=== PATIENT | female | born 1935 | race Caucasian/White ===

== ENCOUNTER 2021-02-07 14:19 | Inpatient (IN) | payer MEDICARE, SELFPAY ==
[2021-02-07] MEDS ORDERED: hydrALAZINE 20 MG/ML VIAL SLOW IVP PRN (16:23)
[2021-02-07] MEDS ORDERED: Dextrose 5% in Water 1,000 ML IV PRN (16:23)
[2021-02-07] MEDS ORDERED: Ondansetron ODT 4 MG TAB PO PRN (16:23)
[2021-02-07] MEDS ORDERED: Dextrose 50% Abboject 50 ML SYRINGE SLOW IVP PRN (16:23)
[2021-02-07 18:37] LABS: INR-International Normal Ratio 1.1; PTT 42.5 sec (22.9-36.1); Prothrombin Time 14.5 sec (12.0-14.7)
[2021-02-07] MEDS: Acetaminophen 325 MG TAB PO SCH ×2 (18:44→23:33)
[2021-02-07] MEDS ORDERED: Enoxaparin Sodium 80 MG/0.8 ML SYRINGE SC SCH (21:00)
[2021-02-07] MEDS: Famotidine/PF 20 mg/2ml Vial SLOW IVP SCH (21:17)
[2021-02-07] MEDS ORDERED: Enoxaparin Sodium 100 MG/ML SYRINGE SC SCH (21:30)
[2021-02-07] MEDS: traMADol HCl 50 MG TAB PO PRN (21:49)
[2021-02-07] MEDS ORDERED: Amlodipine 5 MG TAB PO SCH (23:00)
[2021-02-07] MEDS: Ibuprofen 200 MG TAB PO SCH (23:33)
[2021-02-08 01:02] VITALS: BMI 30.4
[2021-02-08] MEDS: traMADol HCl 50 MG TAB PO PRN ×2 (01:40→08:49)
[2021-02-08] MEDS: Morphine 4 MG/ML VIAL SLOW IVP PRN ×2 (02:21→05:24)
[2021-02-08] MEDS: Ibuprofen 200 MG TAB PO SCH ×3 (03:28→21:26)
[2021-02-08 05:34] LABS: SARS-CoV-2 PCR by NAA Not Detected (NotDetected)
[2021-02-08 06:03] LABS: INR-International Normal Ratio 1.1; Prothrombin Time 14.3 sec (12.0-14.7)
[2021-02-08 06:04] LABS: PTT 49.4 sec (22.9-36.1)
[2021-02-08 06:17] LABS: Phosphorus 2.7 mg/dL (2.3-4.7)
[2021-02-08] MEDS: Acetaminophen 325 MG TAB PO SCH ×4 (06:19→23:40)
[2021-02-08 06:22] LABS: Anion Gap 13 mmol/L (10-20); BUN (Urea Nitrogen) 17 mg/dL (9.8-20.1); Calc. Creatinine Clearance 69 mL/min (70-130); Carbon Dioxide 21 mmol/L (23-31); Chloride 107 mmol/L (98-107); Glucose 103 mg/dL (83-110); Potassium 3.8 mmol/L (3.5-5.1); Sodium 137 mmol/L (136-145)
[2021-02-08 06:33] LABS: #Eosinphils 0.4 thou/uL (0.0-0.7); #Lymphocytes 1.7 thou/uL (1.20-3.40); #Monocytes 1.1 thou/uL (0.11-0.59); #Neutrophils 13.2 thou/uL (1.40-6.50); %Basophils 0.1 % (0.0-1.0); %Eosinophils 2.2 % (0.0-10.0); %Lymphocytes 10.3 % (21.0-51.0); %Monocytes 6.9 % (0.0-10.0); %Neutrophils 80.5 % (42.0-75.0); Anisocytosis SLIGHT = 6-15 cells (100X) (0-5/hpf); Hemoglobin 7.2 g/dL (12.0-16.0); MDiff Complete? YES; Mean Corpuscular HGB CONC 29.1 g/dL (32.0-36.0); Mean Corpuscular Hemoglobin 18.5 pg (27.0-31.0); Mean Corpuscular Volume 63.3 fL (78.0-98.0); Mean Platelet Volume 9.4 fL (7.4-10.4); Microcytosis SLIGHT = 6-15 cells (100X) (0-5/hpf); Platelet Count 339 thou/uL (130-400); RBC Distribution Width 17.3 % (11.5-14.5); Red Blood Cell (RBC) Count 3.91 mill/uL (4.20-5.40); Reflex for Review?? YES; White Blood Cell (WBC) Count 16.5 thou/uL (4.8-10.8)
[2021-02-08] MEDS: Famotidine/PF 20 mg/2ml Vial SLOW IVP SCH ×2 (08:48→21:24)
[2021-02-08] MEDS: Amlodipine 5 MG TAB PO SCH (08:48)
[2021-02-08] MEDS: Gabapentin 300 MG CAP PO SCH ×2 (08:48→21:26)
[2021-02-08] MEDS: Enoxaparin Sodium 100 MG/ML SYRINGE SC SCH ×2 (08:49→21:24)
[2021-02-08] MEDS ORDERED: Non-Formulary Item 1 EACH (Gabapentin [Gabapentin] 600 MG Tablet) PO SCH (09:00)
[2021-02-08 15:48] LABS: Bacteria/HPF None Seen HPF (None Seen); Bilirubin Negative (Negative); Blood, Urine Negative (Negative); Clarity Clear (Clear); Glucose, Urine (Dipstick) Normal (Negative); Ketone, Urine Negative (Negative); Leukocyte Negative Leu/uL (Negative); Nitrite Negative (Negative); Protein, Urine (Dipstick) 20 mg/dL (Neg-Trace); RBC/HPF 0-3 HPF (0-3); Specific Gravity, Urine 1.047 (1.002-1.036); Squamous Epithelial 0-3 HPF (0-3); Urobilinogen Normal mg/dL (Less than 2); WBC/HPF 0-3 HPF (0-3); pH, Urine 5.5 (5.0-9.0)
[2021-02-08] MEDS: Atorvastatin Calcium 40 MG TAB PO SCH (21:24)
[2021-02-09] MEDS: Ibuprofen 200 MG TAB PO SCH ×3 (04:29→20:01)
[2021-02-09] MEDS: Acetaminophen 325 MG TAB PO SCH ×4 (05:35→23:38)
[2021-02-09 06:17] LABS: #Eosinphils 0.4 thou/uL (0.0-0.7); #Lymphocytes 2.1 thou/uL (1.20-3.40); #Monocytes 1.1 thou/uL (0.11-0.59); #Neutrophils 14.1 thou/uL (1.40-6.50); %Basophils 0.2 % (0.0-1.0); %Eosinophils 2.4 % (0.0-10.0); %Lymphocytes 11.9 % (21.0-51.0); %Monocytes 6.3 % (0.0-10.0); %Neutrophils 79.2 % (42.0-75.0); Hemoglobin 8.4 g/dL (12.0-16.0); Mean Corpuscular HGB CONC 30.5 g/dL (32.0-36.0); Mean Corpuscular Hemoglobin 20.1 pg (27.0-31.0); Mean Platelet Volume 9.8 fL (7.4-10.4); Platelet Count 342 thou/uL (130-400); RBC Distribution Width 20.3 % (11.5-14.5); White Blood Cell (WBC) Count 17.9 thou/uL (4.8-10.8)
[2021-02-09] MEDS: Enoxaparin Sodium 100 MG/ML SYRINGE SC SCH ×2 (08:15→20:00)
[2021-02-09] MEDS: traMADol HCl 50 MG TAB PO PRN ×3 (08:22→19:59)
[2021-02-09] MEDS: Gabapentin 300 MG CAP PO SCH ×2 (08:23→20:00)
[2021-02-09] MEDS: Amlodipine 5 MG TAB PO SCH (08:24)
[2021-02-09] MEDS: Famotidine/PF 20 mg/2ml Vial SLOW IVP SCH (08:25)
[2021-02-09] MEDS: Ferrous Sulfate 325 MG TAB PO SCH ×2 (08:25→17:53)
[2021-02-09] MEDS: Ascorbic Acid 500 mg Chewable Tablet PO SCH ×2 (08:25→20:00)
[2021-02-09] MEDS: Polyethylene Glycol 3350 17 GM Packet PO SCH (08:26)
[2021-02-09 08:36] LABS: Albumin 3.2 g/dL (3.4-4.8); Anion Gap 11 mmol/L (10-20); BUN (Urea Nitrogen) 14 mg/dL (9.8-20.1); Bilirubin, Total 0.9 mg/dL (0.2-1.2); Calc. Creatinine Clearance 79 mL/min (70-130); Calcium 8.9 mg/dL (7.8-10.44); Carbon Dioxide 23 mmol/L (23-31); Chloride 107 mmol/L (98-107); Glucose 103 mg/dL (83-110); Potassium 3.7 mmol/L (3.5-5.1); Protein, Total 6.3 g/dL (5.8-8.1); Sodium 137 mmol/L (136-145)
[2021-02-09 08:37] LABS: ALT (SGPT) 9 U/L (8-55); AST (SGOT) 13 U/L (5-34); Alkaline Phosphatase 66 U/L (40-110); Globulin 3.1 g/dL (2.4-3.5)
[2021-02-09] MEDS: Famotidine 20 MG TAB PO SCH (19:59)
[2021-02-09] MEDS: Atorvastatin Calcium 40 MG TAB PO SCH (20:00)
[2021-02-10] MEDS: Ibuprofen 200 MG TAB PO SCH ×2 (03:06→11:57)
[2021-02-10] MEDS: Acetaminophen 325 MG TAB PO SCH ×2 (06:30→11:57)
[2021-02-10] MEDS: traMADol HCl 50 MG TAB PO PRN ×2 (07:12→13:48)
[2021-02-10] MEDS: Gabapentin 300 MG CAP PO SCH (08:20)
[2021-02-10] MEDS: Polyethylene Glycol 3350 17 GM Packet PO SCH (08:21)
[2021-02-10] MEDS: Amlodipine 5 MG TAB PO SCH (08:21)
[2021-02-10] MEDS: Famotidine 20 MG TAB PO SCH (08:21)
[2021-02-10] MEDS: Ascorbic Acid 500 mg Chewable Tablet PO SCH (08:21)
[2021-02-10] MEDS: Ferrous Sulfate 325 MG TAB PO SCH (08:21)
[2021-02-10] MEDS: Enoxaparin Sodium 100 MG/ML SYRINGE SC SCH (08:21)
[2021-02-10 12:27] VITALS: BP 136/77; TEMP 99.1
== END 2021-02-10 15:50 | disposition home or self-care (01) | DRG 183 ==
LOC: ERS 14:19 → SURG A 16:09
PROVIDERS: ADMIT Surgery; ATTEND Surgery
DX: S22.42XA Multiple fractures of ribs, left side, initial encounter for closed fracture (principal); I26.99 Other pulmonary embolism without acute cor pulmonale; Z20.822 Contact with and (suspected) exposure to COVID-19; W19.XXXA Unspecified fall, initial encounter; E78.00 Pure hypercholesterolemia, unspecified; Z96.611 Presence of right artificial shoulder joint; I10 Essential (primary) hypertension; R73.03 Prediabetes; Z95.1 Presence of aortocoronary bypass graft; Z90.49 Acquired absence of other specified parts of digestive tract; Z88.0 Allergy status to penicillin; Z91.040 Latex allergy status; S32.019D Unspecified fracture of first lumbar vertebra, subsequent encounter for fracture with routine healing; S32.039D Unspecified fracture of third lumbar vertebra, subsequent encounter for fracture with routine healing
CPT/HCPCS: 36415; 36430; 80048; 80053; 81003; 83735; 84100; 85025; 85610; 85730; 86850; 86900; 86901; 87086; 87635; 99285; J1650; J2270; P9016; Q0162; S0028; U0003; U0005

== ENCOUNTER 2021-02-25 11:29 | Outpatient (CLI) | payer MEDICARE | END 2021-02-25 11:30 | disposition home or self-care (01) | LOC: BICRAD 11:29 | PROVIDERS: ATTEND Surgery | DX: S22.39XA Fracture of one rib, unspecified side, initial encounter for closed fracture (principal) | CPT/HCPCS: 71046 ==

== ENCOUNTER 2021-03-18 11:31 | Day surgery (SDC) | payer MEDICARE ==
[2021-03-18] MEDS ORDERED: PROPOFOL 200 MG/20 ML VIAL ONE (13:23)
[2021-03-18 15:16] LABS: Hemoglobin 10.2 g/dL (12.0-16.0); Mean Corpuscular HGB CONC 30.6 g/dL (32.0-36.0); Mean Corpuscular Hemoglobin 23.2 pg (27.0-31.0); Mean Corpuscular Volume 75.8 fL (78.0-98.0); Mean Platelet Volume 9.8 fL (7.4-10.4); Platelet Count 296 thou/uL (130-400); RBC Distribution Width 24.3 % (11.5-14.5); Red Blood Cell (RBC) Count 4.38 mill/uL (4.20-5.40); White Blood Cell (WBC) Count 7.2 thou/uL (4.8-10.8)
[2021-03-18 15:38] LABS: ALT (SGPT) 18 U/L (8-55); AST (SGOT) 16 U/L (5-34); Alkaline Phosphatase 74 U/L (40-110); Anion Gap 15 mmol/L (10-20); BUN (Urea Nitrogen) 8 mg/dL (9.8-20.1); Bilirubin, Total 0.4 mg/dL (0.2-1.2); Calc. Creatinine Clearance 0 mL/min (70-130); Calcium 9.6 mg/dL (7.8-10.44); Carbon Dioxide 25 mmol/L (23-31); Cardiac Risk 4.3 (Less than 4.5); Chloride 107 mmol/L (98-107); Cholesterol 153 mg/dl (< 200 Desired); Globulin 2.8 g/dL (2.4-3.5); Glucose 97 mg/dL (83-110); HDL Cholesterol 36 mg/dL (>60 Neg Risk); LDL Cholesterol, Calculated 85 mg/dL; Potassium 4.5 mmol/L (3.5-5.1); Protein, Total 6.8 g/dL (5.8-8.1); Sodium 142 mmol/L (136-145); Triglycerides 162 mg/dL (Less than 150)
== END 2021-03-18 15:34 | disposition home or self-care (01) ==
LOC: SDC 11:31
PROVIDERS: ATTEND Internal Medicine Gastroenterology
PROC: 0DB98ZX Excision of Duodenum, Via Natural or Artificial Opening Endoscopic, Diagnostic (ICD-10-PCS; principal; 2021-03-18)
PROC: 0DB78ZX Excision of Stomach, Pylorus, Via Natural or Artificial Opening Endoscopic, Diagnostic (ICD-10-PCS; 2021-03-18)
PROC: 0DB38ZX Excision of Lower Esophagus, Via Natural or Artificial Opening Endoscopic, Diagnostic (ICD-10-PCS; 2021-03-18)
PROC: 0DBN8ZX Excision of Sigmoid Colon, Via Natural or Artificial Opening Endoscopic, Diagnostic (ICD-10-PCS; 2021-03-18)
DX: D12.5 Benign neoplasm of sigmoid colon (principal); K29.80 Duodenitis without bleeding; K31.89 Other diseases of stomach and duodenum; K22.70 Barrett's esophagus without dysplasia; D50.9 Iron deficiency anemia, unspecified; K21.00 Gastro-esophageal reflux disease with esophagitis, without bleeding; K44.9 Diaphragmatic hernia without obstruction or gangrene; Q43.8 Other specified congenital malformations of intestine; K64.8 Other hemorrhoids; J45.909 Unspecified asthma, uncomplicated; I48.91 Unspecified atrial fibrillation; I50.9 Heart failure, unspecified; I25.10 Atherosclerotic heart disease of native coronary artery without angina pectoris; E78.00 Pure hypercholesterolemia, unspecified; E07.9 Disorder of thyroid, unspecified; Z86.711 Personal history of pulmonary embolism; Z87.891 Personal history of nicotine dependence; Z79.82 Long term (current) use of aspirin; Z79.899 Other long term (current) drug therapy; Z88.0 Allergy status to penicillin; Z88.2 Allergy status to sulfonamides; Z91.011 Allergy to milk products; Z91.040 Latex allergy status; Z95.1 Presence of aortocoronary bypass graft; Z95.5 Presence of coronary angioplasty implant and graft
CPT/HCPCS: 80053; 80061; 85027; 88305; 88312; 88313; J2704